=== PATIENT | male | born 1965 | race Caucasian/White ===

== ENCOUNTER 2017-06-01 07:26 | Emergency (ER) | payer BC ==
[2017-06-01 07:36] VITALS: BP 123/70
--- NOTE | 2017-06-01 08:03 | ED ---
Throat Pain/Nasal Congestion - HPI Summary HPI Summary: 52 yr old male with complaint of sinus pressure, congestion, post nasal drip, coughing and chest congestion. Onset of symptoms was 1.5 weeks ago. Associated with mostly sinus pressure. he states he has allergies to PCN. - History of Current Complaint Chief Complaint: UCRespiratory Time Seen by Provider: 06/01/17 07:36 - Allergies/Home Medications Allergies/Adverse Reactions: Allergies Allergy/AdvReac Type Severity Reaction Status Date / Time Penicillins Allergy Unknown Verified 06/01/17 07:36 Reaction Details PMH/Surg Hx/FS Hx/Imm Hx Endocrine/Hematology History: Reports: Hx Diabetes Cardiovascular History: Reports: Hx Hypertension Respiratory History: Reports: Hx Asthma - Surgical History Surgery Procedure, Year, and Place: appy 1978, right humerus bone cyst , fibromas on arms, legs, cardiac stents 2009 Infectious Disease History: No Infectious Disease History: Denies: Traveled Outside the [place] in Last 30 Days - Family History Known Family History: Positive: None Negative: Cardiac Disease, Hypertension - Social History Occupation: Employed Full-time Alcohol Use: Rare Substance Use Type: Reports: None Smoking Status (MU): Former Smoker Type: Cigarettes Amount Used/How Often: 1 PPD Length of Time of Smoking/Using Tobacco: On and Offfor 38 Years Review of Systems Constitutional: Negative Positive: Sore Throat, Nasal Discharge Positive: Cough All Other Systems Reviewed And Are Negative: Yes Physical Exam Triage Information Reviewed: Yes Vital Signs On Initial Exam: Initial Vitals Temp Pulse Resp BP Pulse Ox 98 F 79 18 123/70 97 06/01/17 07:32 06/01/17 07:32 06/01/17 07:32 06/01/17 07:32 06/01/17 07:32 Vital Signs Reviewed: Yes Appearance: Positive: Well-Appearing, Obese Skin: Positive: Warm, Skin Color Reflects Adequate Perfusion Head/Face: Positive: Normal Head/Face Inspection Eyes: Positive: EOMI ENT: Positive: Normal ENT inspection, Hearing grossly normal, Pharynx normal, Nasal congestion, TMs normal, Sinus tenderness - bilateral maxillary Respiratory/Lung Sounds: Positive: Clear to Auscultation, Breath Sounds Present Cardiovascular: Positive: RRR. Negative: Murmur Abdomen Description: Positive: Nontender Musculoskeletal: Positive: Strength/ROM Intact Neurological: Positive: Sensory/Motor Intact, Alert, Oriented to Person Place, Time, CN Intact II-III Psychiatric: Positive: Normal - Skip Coma Scale Best Eye Response: 4 - Spontaneous Best Motor Response: 6 - Obeys Commands Best Verbal Response: 5 - Oriented Diagnostics - Vital Signs Vital Signs Temp Pulse Resp BP Pulse Ox 06/01/17 07:32 98 F 79 18 123/70 97 - Laboratory Lab Statement: Any lab studies that have been ordered have been reviewed, and results considered in the medical decision making process. EENT Course/Dx - Course Course Of Treatment: 52 male with sinusitis, allergies to PCN. Zpack prescribed. - Diagnoses Provider Diagnoses: Sinusitis Discharge - Discharge Plan Condition: Good Disposition: HOME Prescriptions: Azithromycin TAB* [Zithromax TAB (Z-ADEN) 250 mg #6 tabs] 2 tab PO .TODAY, THEN 1 DAILY #1 aden Patient Education Materials: Sinusitis (ED) Referrals: Halina Corey MD [Primary Care Provider] - 3 Days
== END 2017-06-01 07:58 | disposition home or self-care (01) ==
LOC: UCCORT 07:26
DX: J32.9 Chronic sinusitis, unspecified (principal); Z88.0 Allergy status to penicillin; E11.9 Type 2 diabetes mellitus without complications; I10 Essential (primary) hypertension; J45.909 Unspecified asthma, uncomplicated; Z87.891 Personal history of nicotine dependence; E66.9 Obesity, unspecified
CPT/HCPCS: 99212; G0463

== ENCOUNTER 2018-05-12 21:22 | Emergency (ER) | payer BC ==
[2018-05-12 21:38] VITALS: BP 141/92
--- NOTE | 2018-05-12 21:39 | UC ---
General HPI - HPI Summary HPI Summary: 53 yo male presents with fatigue, body aches, and "not feeling right" over the past week. Not getting worse or better. He has taken aspirin for his symptoms with no change. He does not have any cold symptoms, but attributes the way he is feeling due to the "flu". He states he feels like this is the "precursor" to bronchitis that he gets about twice a year. Denies fever, headache, dizziness , sinus symptoms, sore throat, cough, SOB, chest pain, abdominal pain, n/v, dysuria, hematuria, blood in stool, or gum bleeding. He has an extensive cardiac history and tells me that he has had 5 cardiac stents. 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 - History of Current Complaint Stated Complaint: NAUSEA/ACHES Time Seen by Provider: 05/12/18 21:34 Hx Obtained From: Patient Onset Severity: Mild Current Severity: Mild Pain Intensity: 2 - Allergy/Home Medications Allergies/Adverse Reactions: Allergies Allergy/AdvReac Type Severity Reaction Status Date / Time Penicillins Allergy Unknown Verified 05/12/18 21:41 Reaction Details Home Medications: Home Medications Potassium Chloride [Klor-Con 10] 10 meq PO DAILY 05/12/18 [History Confirmed 08/25] Zaleplon [Sonata] 20 mg PO BEDTIME 05/12/18 [History Confirmed 05/12/18] glipiZIDE TAB* [Glucotrol TAB*] 5 mg PO DAILY 05/12/18 [History Confirmed ] PMH/Surg Hx/FS Hx/Imm Hx Endocrine History: Diabetes, Dyslipidemia Cardiovascular History: Cardiac Disease, Hypertension, Myocardial Infarction GI/ History: Gastroesophageal Reflux, Ulcer - Surgical History Surgical History: Yes Surgery Procedure, Year, and Place: appy 1978, right humerus bone cyst 1971-, fibromas on arms, legs, cardiac stents 2009 - Family History Known Family History: Positive: Cardiac Disease, Hypertension - Social History Occupation: Employed Full-time Lives: With Family Alcohol Use: Rare Substance Use Type: None Smoking Status (MU): Former Smoker Type: Cigarettes Amount Used/How Often: 1 PPD Length of Time of Smoking/Using Tobacco: On and Offfor 38 Years When Did the Patient Quit Smoking/Using Tobacco: ~2013 - Immunization History Most Recent Influenza Vaccination: no Review of Systems All Other Systems Reviewed And Are Negative: Yes Constitutional: Positive: Fatigue, Other - Body aches Skin: Positive: Negative Eyes: Positive: Negative ENT: Positive: Negative Respiratory: Positive: Negative Cardiovascular: Positive: Negative Gastrointestinal: Positive: Negative Genitourinary: Positive: Negative Motor: Positive: Negative Neurovascular: Positive: Negative Musculoskeletal: Positive: Negative Neurological: Positive: Negative Psychological: Positive: Negative Physical Exam - Summary Physical Exam Summary: GENERAL: NAD. Obese SKIN: No rashes, sores, or open wounds. HEENT: Head: AT/NC Eyes: PERRLA. EOM intact. Conjunctiva clear without inflammation or discharge. Ears: Hearing grossly normal. TMs intact, no bulging, erythema, or edema. Nose: Nasal mucosa pink and moist. NTTP maxillary and frontal sinus. Throat: Posterior oropharynx without exudates, erythema, or tonsillar enlargement. Uvula midline. NECK: Supple. Nontender. No lymphadenopathy. CHEST: CTAB. No r/r/w. No accessory muscle use. Breathing comfortably and in no distress. CV: RRR. Pulses intact. Brisk cap refill. ABDOMEN: Soft. NTTP. Bowel sounds present NEURO: Alert. PSYCH: Age appropriate behavior. Triage Information Reviewed: Yes Vital Signs: Vital Signs: Temp Pulse Resp BP Pulse Ox 97.6 F 90 18 141/92 97 05/12/18 21:36 05/12/18 21:36 05/12/18 21:36 05/12/18 21:36 05/12/18 21:36 Laboratory Tests 05/12/18 21:40 POC Glucose (mg/dL) 143 H Vital Signs Reviewed: Yes Course/Dx - Course Course Of Treatment: EKbpm. NSR. No STEMI. As read by Dr. Yepez. Prolonged NE. POC glucose: 143. Discussed with pt that I am unsure the cause of his fatigue and body aches, but could be related to viral "flu-like" illness. He is well appearing today and his exam is WNL. I will draw for CBC, CMP, TSH, and lyme panel and have him f/u with his PCP as soon as possible ( within 1 week) for recheck. Strongly advised him to go to the ED if he develops worsening symptoms, SOB, or chest pain. - Diagnoses Provider Diagnosis: Fatigue, Body aches Discharge - Sign-Out/Discharge Documenting (check all that apply): Patient Departure All imaging exams completed and their final reports reviewed: No Studies - Discharge Plan Condition: Stable Disposition: HOME Referrals: Halina Corey MD [Primary Care Provider] - 1 Day Additional Instructions: Your blood pressure was high at todays visit. 1) I am unsure the cause of your fatigue and body aches - this could be related to a viral illness. Please schedule a follow up appointment with your Primary Doctor this week for a recheck. 2) If you develop a fever, shortness of breath, chest pain, new or worsening symptoms - please go to the ED. - Billing Disposition and Condition Condition: STABLE Disposition: Home
[2018-05-13 10:45] LABS: Hematocrit 55 % (42-52); Hemoglobin 18.6 g/dl (14.0-18.0); Mean Corpuscular HGB Conc 34 g/dl (31-36); Mean Corpuscular Hemoglobin 31 pg (27-31); Mean Corpuscular Volume 91 fL (80-94); Mean Platelet Volume 9.2 fL (7.4-10.4); Platelet Count 236 10^3/ul (150-450); Red Cell Distribution Width 14 % (10.5-15); White Blood Count 9.5 10^3/ul (3.5-10.8)
[2018-05-13 11:00] LABS: EGFR Non-African American 93.6 (>60)
[2018-05-13 11:27] LABS: ABS Basophils 0.1 10^3/ul (0-0.2); ABS Eosinophils 0.1 10^3/ul (0-0.6); ABS Lymphocytes 2.2 10^3/ul (1.0-4.8); ABS Monocytes 1.1 10^3/ul (0-0.8); ABS Nucleated RBC 0 10^3/ul; Eosinophil % 1.5 %; Lymphocyte % 23.3 %; Nucleated Red Blood Cells % 0.4
--- NOTE | 2018-05-14 08:11 | UC ---
- Progress Note Progress Note: cbc/cmp/tsh reviewed slight increase calcium please advise pt to f/u with PCP heri 05/14/18 Course/Dx - Diagnoses Provider Diagnoses: Fatigue, Body aches Discharge - Sign-Out/Discharge Documenting (check all that apply): Post-Discharge Follow Up All imaging exams completed and their final reports reviewed: No Studies - Discharge Plan Condition: Stable Disposition: HOME Referrals: Madhav ACEVES,Halina [Primary Care Provider] - 1 Day Additional Instructions: Your blood pressure was high at todays visit. 1) I am unsure the cause of your fatigue and body aches - this could be related to a viral illness. Please schedule a follow up appointment with your Primary Doctor this week for a recheck. 2) If you develop a fever, shortness of breath, chest pain, new or worsening symptoms - please go to the ED. - Billing Disposition and Condition Condition: STABLE Disposition: Home
== END 2018-05-12 22:03 | disposition home or self-care (01) ==
LOC: UCCORT 21:22
DX: R53.83 Other fatigue (principal); R52 Pain, unspecified; Z88.0 Allergy status to penicillin; E11.9 Type 2 diabetes mellitus without complications; I10 Essential (primary) hypertension; Z87.891 Personal history of nicotine dependence
CPT/HCPCS: 36415; 80053; 84443; 85025; 86618; 93005; 99212; G0463

== ENCOUNTER 2018-09-01 20:50 | Emergency (ER) | payer BC ==
[2018-09-01 21:08] VITALS: BP 156/83
--- NOTE | 2018-09-01 21:20 | UC ---
Lower Extremity/Ankle HPI - HPI Summary HPI Summary: 53-year-old male who is an insulin-dependent diabetic. He stated his left second toenail came off this evening when he hits his toe. Because of his diabetes he has decreased sensation to his feet anyways. He states last evening when he took a shower his toe looked normal. Tonight it's more red, tender and warm to touch. - History of Current Complaint Chief Complaint: UCLowerExtremity Stated Complaint: LEFT 2ND TOENAIL CAME OFF Time Seen by Provider: 09/01/18 21:01 Hx Obtained From: Patient, Family/Solar Maintenance Technician Onset/Duration: Gradual Onset Severity Initially: Moderate Severity Currently: Moderate Pain Intensity: 2 Aggravating Factor(s): Nothing Alleviating Factor(s): Nothing Able to Bear Weight: Yes - Allergies/Home Medications Allergies/Adverse Reactions: Allergies Allergy/AdvReac Type Severity Reaction Status Date / Time Penicillins Allergy Unknown Verified 09/01/18 21:03 Reaction Details PMH/Surg Hx/FS Hx/Imm Hx Previously Healthy: No Endocrine History: Diabetes Cardiovascular History: Cardiac Disease, Hypertension Respiratory History: COPD, Asthma - Surgical History Surgical History: Yes Surgery Procedure, Year, and Place: appy 1978, right humerus bone cyst 1971-, fibromas on arms, legs, cardiac stents 2009 - Family History Known Family History: Positive: Cardiac Disease, Hypertension - Social History Alcohol Use: Daily Substance Use Type: None Smoking Status (MU): Former Smoker Type: Cigarettes Amount Used/How Often: 1 PPD Length of Time of Smoking/Using Tobacco: On and Offfor 38 Years When Did the Patient Quit Smoking/Using Tobacco: ~2013 - Immunization History Most Recent Influenza Vaccination: no Review of Systems All Other Systems Reviewed And Are Negative: Yes Constitutional: Positive: Negative Neurovascular: Positive: Decreased Sensation - Patient states he normally has decreased sensation in his feet and toes due to his diabetes. Musculoskeletal: Positive: Edema - Occasionally has some pedal edema. Neurological: Positive: Numbness - The numbness and tingling in his toes is no worse tonight than usual. Psychological: Positive: Negative Is Patient Immunocompromised?: No Physical Exam Triage Information Reviewed: Yes Appearance: Well-Appearing, No Pain Distress, Well-Nourished Vital Signs: Initial Vital Signs Temp 98.5 F 09/01/18 21:04 Pulse 100 09/01/18 21:04 Resp 18 03/25/19 21:04 BP 156/83 09/01/18 21:04 Pulse Ox 95 09/01/18 21:04 Vital Signs Reviewed: Yes Musculoskeletal: Positive: Strength Intact, ROM Intact, Edema @ - The left second toe is swollen, erythematous, the nail is missing and it has yellow exudate present. No active drainage. Good peripheral pulses. Neurological: Positive: Alert, Muscle Tone Normal, Other: - Decreased sensation to toes which is normal for the patient. Psychological Exam: Normal Skin: Positive: Other - Patient also has some erythema to the dorsum of his left foot just proximal to the affected toe. Lower Extremity Course/Dx - Course Course Of Treatment: After discussing the case with Dr. Yepez, it was felt this patient needs a higher level of care and he should go to the local emergency room for further care. At this point I believe this is a cellulitis that within 24 hours may worsen. The patient is agreeable to going to the emergency room after that recommendation was made to him. - Differential Dx/Diagnosis Differential Diagnosis/HQI/PQRI: Cellulitis Provider Diagnosis: Cellulitis, toe Discharge - Sign-Out/Discharge Documenting (check all that apply): Patient Departure All imaging exams completed and their final reports reviewed: No Studies - Discharge Plan Condition: Fair Disposition: HOME-RECOMMEND TO ED Patient Education Materials: Cellulitis (DC) Referrals: Halina Corey MD [Primary Care Provider] - Additional Instructions: It is highly recommended that you go to the emergency room for further treatment from here. - Billing Disposition and Condition Condition: FAIR Disposition: Home-Recommend to ED
== END 2018-09-01 21:25 | disposition home health service (06) ==
LOC: UCCORT 20:50
DX: L03.032 Cellulitis of left toe (principal); E11.9 Type 2 diabetes mellitus without complications; I10 Essential (primary) hypertension; Z79.4 Long term (current) use of insulin; Z88.0 Allergy status to penicillin; Z87.891 Personal history of nicotine dependence
CPT/HCPCS: 99212; G0463

== ENCOUNTER 2019-03-21 13:03 | Emergency (ER) | payer BC ==
--- OUTSIDE RECORDS SUMMARY | 2019-03-21 13:11 | XMS REPORT | Continuity of Care Document ---
:1965 External Reference #:[id number] Author Name Flavio López MD Address [address] [place] [id number] Care Team Providers Name Role Phone Halina Corey MD - Family Medicine Care Team Information Assistant Prosecuting Attorney [phone] Problems Active Problems Provider Date Coronary arteriosclerosis Rivas Lamar M.D., Onset: 03/05/[address] [facility] Hyperlipidemia Rivas Lamar M.D., Onset: 03/05/[address] [facility] Pure hypercholesterolemia Onset: 03/28/2016 Morbid obesity Rivas Lamar M.D., Onset: 03/05/[address] [facility] Neurological disorder with type 2 Halina Corey MD Onset: 11/25/2014 diabetes mellitus [place] Elvi Ninasendy, Onset: 03/24/2015 MSN, INDEX CLERK Testicular hypofunction Halina Corey MD Onset: 03/31/2015 Hypertensive heart disease without heart Halina Corey MD Onset: 03/31/2015 failure Atherosclerotic heart disease of [place] Halina Corey MD Onset: 04/13/2015 coronary artery without angina pectoris Type II diabetes mellitus uncontrolled Rivas Lamar M.D., Onset: 12/[address] [facility] Type 2 diabetes mellitus Halina Corey MD Onset: 03/28/2016 Other enthesopathy of unspecified foot Halina Corey MD Onset: 03/28/2016 and ankle Duodenitis Halina Corey MD Onset: 09/27/2016 Gastro-esophageal reflux disease with Halina Corey MD Onset: 09/27/2016 esophagitis Atherosclerotic heart disease of [place] Halina Corey MD Onset: 09/27/2016 coronary artery with unstable angina pectoris Neurofibromatosis type 1 Halina Corey MD Onset: 11/08/2016 Chronic obstructive pulmonary disease Halina Corey MD Onset: 11/08/2016 with (acute) exacerbation Mild intermittent asthma Halina Corey MD Onset: 01/31/2017 Insomnia Halina Corey MD Onset: 01/31/2017 Infectious colitis, enteritis and Halina Corey MD Onset: 04/19/2017 gastroenteritis Cramp in foot Halina Corey MD Onset: 04/26/2017 Verruca vulgaris Halina Corey MD Onset: 05/29/2018 Candidiasis of skin and nails Halina Corey MD Onset: 05/29/2018 Cellulitis of left toe Rivas Lamar M.D., Onset: 09/12/[address] [facility] Bardales's palsy Flavio López MD Onset: 01/22/2019 Type 2 diabetes mellitus with diabetic Flavio López MD Onset: 01/22/2019 polyneuropathy Bradycardia, unspecified Flavio López MD Onset: 01/22/2019 Essential hypertension Flavio López MD Onset: 02/26/2019 Social History Type Date Description Comments Sex Unknown Tobacco Use Start: Unknown End: Former Cigarette Smoker x 18 yrs quit at Unknown 1 Pack Daily age 47 Smoking Status Reviewed: 02/26/19 Former Cigarette Smoker x 18 yrs quit at 1 Pack Daily age 47 ETOH Use 09/2018 Denies alcohol use not using at thisa time Tobacco Use Start: Unknown End: Patient is a former 1PPD X 16+ YEARS Unknown smoker QUIT 2012 Recreational Drug Use Denies Drug Use Exercise Type/Frequency Does not exercise Allergies, Adverse Reactions, Alerts Active Allergies Reaction Severity Comments Date NKDA 09/12/2018 Seasonal 09/25/2018 Inactive Allergies Environmental 11/25/2014 Medications Active Medications SIG Qnty Indications Ordering Provider Date Glipizide 1 tabs by mouth 90tabs Flavio López MD 09/11/2018 10mg once a day with Tablets breakfast Nystatin apply to affected 60gm B37.2 Halina Corey, 05/29/2018 areas 2x/day after 701363Mtko/GM Powder washing and drying well Jobst Active wear to work each 2pr I25.10 Halina Corey, 04/18/2018 15-20MMHG/Knee day High/Closed Toe/X-Large Misc E11.21 Rosuvastatin Calcium Take 1 Tablet Before 90tabs Halina Corey, 2017 10mg Bedtime (Maximum MD Tablets Daily Dose 1) Gabapentin take one capsule by 270caps Halina Corey, 01/02/2018 300mg Capsules mouth three times a MD day Triamcinolone apply to affected 10gm Halina Corey, 01/02/2018 Acetonide Dental Paste oral lesions 3x/day MD if needed, 0.1% Paste especially before bed, Losartan Take One Tablet By 90tabs Rivas Lamar 12/27/2017 Potassium/Hydrochlorot Mouth Every Day Pako Jones, [facility] hiazide 50-12.5mg Tablets Pantoprazole Sodium Take One Tablet By 90tabs K29.60 Halina Corey, 07/04 20mg Mouth Every Day MD Yuriy CONTRERAS Isosorbide Mononitrate Take 1 Tablet Daily 90tabs Halina Corey, 2016 ER (Maximum Daily Dose MD 60mg Tablets ER 24HR Of 1 Tablet) MDD 1 Klor-Con 10 1 tab by mouth every 90tabs R25.2 Halina Corey, 04/26/2017 10Meq Tablets morning MD ER Clopidogrel Bisulfate Take 1 Tablet Daily 90tabs Halina Corey, 2016 (Maximum Daily Dose MD 75mg Tablets Of 1 Tablet) MDD 1 Proair HFA use 2 inhalations 25.5gm Halina Corey, 06/06/2016 108(90Base) every 4 hours as MD mcg/Act Aerosol needed Freestyle Lite Blood check fasting 1units Halina Corey, 03/28/2016 Glucose Monitoring glucose 2x/day Dx MD System E11.40 Device Nitrostat 1 tab sl every 5 min 25tabs I25.10 Halina Corey, 11/25/2014 0.4mg Tablets x3 chest pain MD Nichols Freestyle Test Strips test glucose 2x/day 300units E11.65 Halina Corey, 11/19/2014 at alternating times MD Strips and as needed. Aspirin 81 1 po qd I25.10 [place] 11/11/2013 81mg Tablets Lana, MSN, DR INDEX CLERK Furosemide Take 1 Tablet Twice 180tabs R60.9 Halina Corey, 02/06/2011 20mg Tablets A Day (Max Daily MD Dose: 2) MDD 2 Carvedilol Take 1 Tablet Twice 180tabs I10 Halina Corey, 09/14/2010 25mg Tablets A Day (Maximum Daily MD Dose Is 2 Tablets) MDD 2 Fish Oil po bid 90caps Unknown 1000mg Capsules Saw [place] po 3x a day Unknown 500mg Capsules Multi-Vitamin 1 po qd Unknown Tablets Vitamin C 1 by mouth every day 100tabs Unknown 1000mg Tablets [facility] D3 Once Daily Unknown 2000Unit Capsules Zaleplon take 2 capsules by 60caps G47.00 Halina Corey, 10mg Capsules mouth at bedtime as MD needed for insomnia reference #: [id number] Fluticasone Propionate inhale one spray in 48units Halina Corey, each nostril every MD 50mcg/Act Suspension day OTC Antacid A/D prn Unknown Montelukast Sodium Take One Tablet By 90tabs Halina Corey, 10mg Mouth Every Morning MD Tablets Maximum Daily Dose = 1 Flovent Diskus Use 1 Inhalation 180units Halina Corey, Twice A Day as 250mcg/Blist Aerosol Needed ( Maximum Daily Dose Of 2 Inhalations ) Invokana Take One Tablet By 90tabs Halina Corey, 300mg Tablets Mouth Every Day Janumet Take One Tablet By 180tabs Halina Corey, 50-1000mg Tablets Mouth Twice A Day Valacyclovir HCL Take One Tablet By Unknown 1gm Mouth Twice A Day Tablets Medications Administered in Office Medication SIG Qnty Indications Ordering Provider Date Injection Testosterone Halina Corey MD 02/10/2015 Enanthate To 200 MG Injection Injection Testosterone Mariposa Haque MD 01/20/2015 Enanthate To 200 MG Injection Injection Testosterone Halina Corey MD 12/30/2014 Enanthate To 200 MG Injection Injection Testosterone Halina Corey MD 12/09/2014 Enanthate To 200 MG Injection Immunizations CPT Code Status Date Vaccine Lot # [id number] Given 02/26/2019 Influenza Virus Vaccine, Quadrivalent, 36 Mos+, [id number] .[id number] 00399 Given 05/29/2018 Influenza Virus Vaccine, Quadrivalent, 36 Mos+, [id number] .5ML 63084 Given 03/28/2016 Influenza Virus Vaccine Split Virus Use For [id number] Individual 3Yr Older Q2038 Given 03/31/2015 Influenza Vaccine (Fluzone) Age 3 And Older [id number] 53098 Given 03/31/2015 Pneumococcal Conjugate Vaccine 13 Valent For [id number] Intramuscular Use Q2038 Given 05/15/2014 Influenza Vaccine (Fluzone) Age 3 And Older Q2038 Given 03/19/2013 Influenza Vaccine (Fluzone) Age 3 And Older Q2038 Given 06/16/2012 Influenza Vaccine (Fluzone) Age 3 And Older 65680 Given 05/08/2012 Pneumovax Injection Q2038 Given 03/08/2011 Influenza Vaccine (Fluzone) Age 3 And Older 92373 Given 03/08/2011 flu vaccination 58116 Given 03/31/2010 flu vaccination 75072 Given 10/07/2009 Tdap injection 28469 Given 08/08/2007 Pneumovax Injection 75657 Given 08/08/2007 Tdap injection Vital Signs Date Vital Result Comment 02/26/2019 8:26am BP Systolic Sitting Left Arm 142 mmHg BP Diastolic Sitting Left Arm 82 mmHg Body Temperature 98.5 F Heart Rate 44 /min Respiratory Rate 18 /min Height 72 inches 6'0" Weight 342.00 lb BMI (Body Mass Index) 46.4 kg/m2 BSA (Body Surface Area) 2.68 m2 [place] body weight in kilograms 81 kg 01/22/2019 10:22am BP Systolic 125 mmHg BP Diastolic 56 mmHg Body Temperature 97.8 F Heart Rate 48 /min Respiratory Rate 18 /min Height 72 inches Weight 338.50 lb BMI (Body Mass Index) 45.9 kg/m2 BSA (Body Surface Area) 2.66 m2 [place] body weight in kilograms 81 kg O2 % BldC Oximetry 95 % Ra Results Test Date Facility Test Result H/L Range Note Glycohemoglobin A1c [facility] [address] Glycohemoglobin 7.9 % High 4.2-6.3 1, 2 9 4077 [facility] (A1c) [place] [address] [phone] eAG 180 mg/dL LDL Cholesterol Profile 02/25/[address] [facility] [address] Cholesterol 142 mg/dL <[address] [place], [place] [id number] [phone] Triglycerides 330 mg/dL High <150 4 HDL Cholesterol 43 mg/dL >40 5 LDL-Cholesterol 33 mg/dL < 100 6 Laboratory test 01/15/2019 [facility] Troponin-I < 0.015 7, [address] ng/mL [place], [place] [id number] [phone] Basic Metabolic 01/15/2019 [facility] Glucose 158 mg/dL High 74-[address] [place] [address] [phone] BUN 18 mg/dL Normal 7-18 Creatinine 0.9 mg/dL Normal 0.6-1.3 Glom Filtration Rate, Estimate >60 mL/min >60 If >60 mL/min >60 9 BUN/Creat 20.0 ratio Sodium 137 mmol/L Normal 136-145 Potassium 3.7 mmol/L Normal 3.5-5.1 Chloride 104 mmol/L Normal 98-107 Carbon Dioxide 23 mmol/L Normal 21-32 Anion Gap 10 mEq/L Normal 8-16 Calcium 9.2 mg/dL Normal 8.5-10.1 CBC W/Automated 01/15/2019 [facility] White 8.6 K/uL Normal 3.4-10.5 [address] [place] [address] Count [phone] Red Blood Count 5.66 M/uL Normal 4.20-5.80 Hemoglobin 17.9 gm/dL High 12.8-17.0 Hematocrit 51.5 % High 38.0-48.0 Mean Cell Volume 91.0 fl Normal 80.0-96.0 Mean Corpuscular HGB 31.6 pg Normal 27.0-33.0 Mean Corpuscular HGB Conc 34.8 g/dL Normal 31.7-36.0 Platelet Count 222 K/uL Normal 155-360 Red Cell Distri Width SD 44.7 fl Normal 36-51 Red Cell Distri Width %CV 13.3 % Normal 11.6-15.8 Mean Platelet Volume 10.7 fl High 6.6-10.6 Neut% 57.6 % Normal 33.0-73.0 Lymph % 26.6 % Normal 20.0-42.0 [place] % 12.7 % High 0.0-10.0 Eo% 1.4 % Normal 0.0-6.6 Bas% 0.8 % Normal 0.0-1.1 Immature Grans 0.9 % Normal 0.0-5.0 NRBC % 0.0 /100WBC < 10/ 100 WBC Neut# 4.93 K/uL Normal 1.8-7.0 Lymph # 2.28 K/uL Normal 1.0-4.0 [place] # 1.09 K/uL High 0.0-0.8 Eos # 0.12 K/uL Normal 0.0-0.5 Baso # 0.07 K/uL Normal 0.0-0.1 Immature Grans Absolute 0.08 K/uL NRBC # 0.00 K/uL Protime 01/15/2019 [facility] Protime 13.2 seconds Normal 12.0-14.[address] [place] [address] [phone] Inr 1.0 Normal 0.9-1.1 11 Laboratory test 01/15/2019 [facility] Act 34.1 Normal 23.4-35.0 [address] [place] [address] Thrombo [phone] Time Comprehensive 01/15/2019 [facility] Glucose 152 mg/dL High 74-106 Metabolic Panel [address] [place] [address] [phone] BUN 22 mg/dL High 7-18 Creatinine 1.2 mg/dL Normal 0.6-1.3 Glom Filtration Rate, Estimate >60 mL/min >60 If >60 mL/min >60 13 BUN/Creat 18.3 ratio Sodium 138 mmol/L Normal 136-145 Potassium 4.2 mmol/L Normal 3.5-5.1 Chloride 102 mmol/L Normal 98-107 Carbon Dioxide 26 mmol/L Normal 21-32 Anion Gap 10 mEq/L Normal 8-16 Calcium 9.0 mg/dL Normal 8.5-10.1 Total Protein 7.7 g/dL Normal 6.4-8.2 Albumin 3.8 g/dL Normal 3.4-5.0 Globulin 3.9 g/dL Normal 1.9-4.3 Alb/Glob 1.0 ratio Bilirubin,Total 0.4 mg/dL Normal 0.2-1.0 Sgot/Ast 28 U/L Normal 15-37 SGPT/Alt 55 U/L Normal 12-78 Alkaline Phosphatase 93 U/L Normal 45-117 Laboratory test finding 01/15/2019 [facility] CK 96 U/L Normal 39-[address] [place] [address] [phone] Troponin-I < 0.015 ng/mL 15 Laboratory test 01/15/2019 [facility] Troponin-I < 0.015 16, [address] ng/[place] [address] [phone] CBC W/Automated 01/15/2019 [facility] White Blood 7.1 K/uL Normal 3.4- Diff [address] Count 10.5 [place] [address] [phone] Red Blood Count 5.55 M/uL Normal 4.20-5.80 Hemoglobin 16.9 gm/dL Normal 12.8-17.0 Hematocrit 51.2 % High 38.0-48.0 Mean Cell Volume 92.3 fl Normal 80.0-96.0 Mean Corpuscular HGB 30.5 pg Normal 27.0-33.0 Mean Corpuscular HGB Conc 33.0 g/dL Normal 31.7-36.0 Platelet Count 180 K/uL Normal 155-360 Red Cell Distri Width SD 44.5 fl Normal 36-51 Red Cell Distri Width %CV 13.2 % Normal 11.6-15.8 Mean Platelet Volume 11.2 fl High 6.6-10.6 Neut% 58.2 % Normal 33.0-73.0 Lymph % 24.8 % Normal 20.0-42.0 [place] % 13.2 % High 0.0-10.0 Eo% 2.4 % Normal 0.0-6.6 Bas% 0.7 % Normal 0.0-1.1 Immature Grans 0.7 % Normal 0.0-5.0 NRBC % 0.0 /100WBC < 10/ 100 WBC Neut# 4.12 K/uL Normal 1.8-7.0 Lymph # 1.75 K/uL Normal 1.0-4.0 [place] # 0.93 K/uL High 0.0-0.8 Eos # 0.17 K/uL Normal 0.0-0.5 Baso # 0.05 K/uL Normal 0.0-0.1 Immature Grans Absolute 0.05 K/uL NRBC # 0.00 K/uL Laboratory test 01/14/2019 [facility] Troponin-I < 0.015 [address] ng/[place] [address] [phone] Glycohemoglobin 11/28/2018 [facility] Glycohemoglobin 7.5 % High 4.2 19, A1c [address] (A1c) -6. 20 [place] [address] 3 [phone] eAG 169 mg/dL Urine Dipstick 11/28/2018 [facility] Inhouse Ua Color yellow Yellow Ua Clarity clear Clear Ua Leuko Neg Negative Ua Nitrite Neg Negative Ua Urobilinogen Neg Low 0.2 - 1.0 E.U./dL Ua Protein Neg Negative Ua PH 6.0 Low 6.5-7.5 Ua Blood Neg Negative Ua Specific Fabius 1.020 1.010-1.030 Ua Ketones Neg Negative Ua Bilirubin Neg Negative Ua Glucose 3+ High Negative LDL Cholesterol 09/12/2018 [facility] [address] Cholesterol 140 mg/dL <200 21, 22 Profile [address] [place] [address] [phone] Triglycerides 128 mg/dL <150 23 HDL Cholesterol 39 mg/dL Low >40 24 LDL-Cholesterol 75 mg/dL < 100 25 Reflex add FT3? Y Reflex add FT4? Y TSH Reflex 09/12/2018 [facility] [address] Thyroid Stim 2.46 uIU/mL Normal 0.30-4.20 FT4 And/Or [address] [facility] Hormone FT3 [place] [address] [phone] Reflex add FT3? Y Reflex add FT4? Y Magnesium 09/12/2018 [facility] [address] Magnesium 2.1 mg/dL Normal 1.8-2.4 [address] [place], [place] [address] [phone] Reflex add FT3? Y Reflex add FT4? Y Basic Metabolic Panel 09/06/2018 [facility] Glucose 207 mg/dL High 74-106 26 [address] [place] [address] [phone] BUN 10 mg/dL Normal 7-18 Creatinine 0.9 mg/dL Normal 0.6-1.3 Glom Filtration Rate, Estimate >60 mL/min >60 If >60 mL/min >60 27 BUN/Creat 11.1 ratio Sodium 136 mmol/L Normal 136-145 Potassium 3.6 mmol/L Normal 3.5-5.1 Chloride 104 mmol/L Normal 98-107 Carbon Dioxide 27 mmol/L Normal 21-32 Anion Gap 5 mEq/L Low 8-16 Calcium 9.5 mg/dL Normal 8.5-10.1 Aot Request 09/05/2018 [facility] Aot Request Test(s) added 28 [address] [place] [address] [phone] Tests to be added: crp Basic Metabolic Panel 09/05/2018 [facility] Glucose 184 mg/dL High 74-106 [address] [place] [address] [phone] BUN 10 mg/dL Normal 7-18 Creatinine 0.9 mg/dL Normal 0.6-1.3 Glom Filtration Rate, Estimate >60 mL/min >60 If >60 mL/min >60 29 BUN/Creat 11.1 ratio Sodium 136 mmol/L Normal 136-145 Potassium 3.7 mmol/L Normal 3.5-5.1 Chloride 106 mmol/L Normal 98-107 Carbon Dioxide 24 mmol/L Normal 21-32 Anion Gap 6 mEq/L Low 8-16 Calcium 9.3 mg/dL Normal 8.5-10.1 CBC 09/05/2018 [facility] White Blood Count 5.2 K/uL Normal 3.4-10.5 [address] [facility] [place] [address] [phone] Red Blood Count 5.27 M/uL Normal 4.20-5.80 Hemoglobin 16.2 gm/dL Normal 12.8-17.0 Hematocrit 49.1 % High 38.0-48.0 Mean Cell Volume 93.2 fl Normal 80.0-96.0 Mean Corpuscular HGB 30.7 pg Normal 27.0-33.0 Mean Corpuscular HGB Conc 33.0 g/dL Normal 31.7-36.0 Platelet Count 181 K/uL Normal 155-360 Red Cell Distri Width SD 45.4 fl Normal 36-51 Red Cell Distri Width %CV 13.5 % Normal 11.6-15.8 Mean Platelet Volume 10.7 fl High 6.6-10.6 NRBC % 0.0 /100WBC < 10/ 100 WBC CBC W/Automated Diff 09/05/2018 [facility] Neut% 49.9 % Normal 33.0-73.0 [address] [place] [address] [phone] Lymph % 29.7 % Normal 20.0-42.0 [place] % 15.5 % High 0.0-10.0 Eo% 2.7 % Normal 0.0-6.6 Bas% 1.2 % High 0.0-1.1 Immature Grans 1.0 % Normal 0.0-5.0 Neut# 2.58 K/uL Normal 1.8-7.0 Lymph # 1.53 K/uL Normal 1.0-4.0 [place] # 0.80 K/uL Normal 0.0-0.8 Eos # 0.14 K/uL Normal 0.0-0.5 Baso # 0.06 K/uL Normal 0.0-0.1 Immature Grans Absolute 0.05 K/uL NRBC # 0.00 K/uL White Blood Count 5.2 K/uL Normal 3.4-10.5 Red Blood Count 5.27 M/uL Normal 4.20-5.80 Hemoglobin 16.2 gm/dL Normal 12.8-17.0 Hematocrit 49.1 % High 38.0-48.0 Mean Cell Volume 93.2 fl Normal 80.0-96.0 Mean Corpuscular HGB 30.7 pg Normal 27.0-33.0 Mean Corpuscular HGB Conc 33.0 g/dL Normal 31.7-36.0 Platelet Count 181 K/uL Normal 155-360 Red Cell Distri Width SD 45.4 fl Normal 36-51 Red Cell Distri Width %CV 13.5 % Normal 11.6-15.8 Mean Platelet Volume 10.7 fl High 6.6-10.6 NRBC % 0.0 /100WBC < 10/ 100 WBC Laboratory test 09/05/2018 [facility] C-Reactive < 3.0 <3.[address] Protein,Quant mg/[place] [address] [phone] Basic Metabolic 09/04/2018 [facility] Glucose 233 High 74-[address] mg/[place] [address] [phone] BUN 11 mg/dL Normal 7-18 Creatinine 1.0 mg/dL Normal 0.6-1.3 Glom Filtration Rate, Estimate >60 mL/min >60 If >60 mL/min >60 30 BUN/Creat 11.0 ratio Sodium 137 mmol/L Normal 136-145 Potassium 3.7 mmol/L Normal 3.5-5.1 Chloride 105 mmol/L Normal 98-107 Carbon Dioxide 25 mmol/L Normal 21-32 Anion Gap 7 mEq/L Low 8-16 Calcium 9.5 mg/dL Normal 8.5-10.1 Laboratory 09/04/2018 [facility] Vancomycin,Trough 17.7 Normal 15.0-20.0 31 test finding [address] ug/[place] [address] [phone] CBC 09/04/2018 [facility] White Blood Count 5.1 Normal 3.4-10.[address] K/[place] [address] [phone] Red Blood Count 5.22 M/uL Normal 4.20-5.80 Hemoglobin 16.2 gm/dL Normal 12.8-17.0 Hematocrit 48.2 % High 38.0-48.0 Mean Cell Volume 92.3 fl Normal 80.0-96.0 Mean Corpuscular HGB 31.0 pg Normal 27.0-33.0 Mean Corpuscular HGB Conc 33.6 g/dL Normal 31.7-36.0 Platelet Count 183 K/uL Normal 155-360 Red Cell Distri Width SD 45.7 fl Normal 36-51 Red Cell Distri Width %CV 13.5 % Normal 11.6-15.8 Mean Platelet Volume 10.4 fL Normal 6.6-10.6 NRBC % 0 Basic Metabolic Panel 09/03/2018 [facility] Glucose 157 mg/dL High 74-[address] [place] [address] [phone] BUN 11 mg/dL Normal 7-18 Creatinine 0.8 mg/dL Normal 0.6-1.3 Glom Filtration Rate, Estimate >60 mL/min >60 If >60 mL/min >60 32 BUN/Creat 13.7 ratio Sodium 138 mmol/L Normal 136-145 Potassium 3.8 mmol/L Normal 3.5-5.1 Chloride 104 mmol/L Normal 98-107 Carbon Dioxide 27 mmol/L Normal 21-32 Anion Gap 7 mEq/L Low 8-16 Calcium 9.1 mg/dL Normal 8.5-10.1 Laboratory 09/03/2018 [facility] Vancomycin,Trough 13.6 Low 15.0-20.0 33 test finding [address] ug/mL [place], [place] [id number] [phone] CBC 09/03/2018 [facility] White Blood Count 5.4 Normal 3.4-10.[address] K/uL [place], [place] [id number] [phone] Red Blood Count 5.25 M/uL Normal 4.20-5.80 Hemoglobin 16.1 gm/dL Normal 12.8-17.0 Hematocrit 48.8 % High 38.0-48.0 Mean Cell Volume 93.0 fl Normal 80.0-96.0 Mean Corpuscular HGB 30.7 pg Normal 27.0-33.0 Mean Corpuscular HGB Conc 33.0 g/dL Normal 31.7-36.0 Platelet Count 167 K/uL Normal 155-360 Red Cell Distri Width %CV 13.9 % Normal 11.6-15.8 Mean Platelet Volume 10.8 fL High 6.6-10.6 CBC W/Automated 09/02/2018 [facility] White 6.7 K/uL Normal 3.4-10.5 [address] [place] [address] Count [phone] Red Blood Count 5.09 M/uL Normal 4.20-5.80 Hemoglobin 15.9 gm/dL Normal 12.8-17.0 Hematocrit 47.4 % Normal 38.0-48.0 Mean Cell Volume 93.1 fl Normal 80.0-96.0 Mean Corpuscular HGB 31.2 pg Normal 27.0-33.0 Mean Corpuscular HGB Conc 33.5 g/dL Normal 31.7-36.0 Platelet Count 172 K/uL Normal 155-360 Red Cell Distri Width SD 48.0 fl Normal 36-51 Red Cell Distri Width %CV 14.4 % Normal 11.6-15.8 Mean Platelet Volume 10.4 fL Normal 6.6-10.6 Neut% 52.8 % Normal 33.0-73.0 Lymph % 28.4 % Normal 20.0-42.0 [place] % 15.4 % High 0.0-10.0 Eo% 2.5 % Normal 0.0-6.6 Bas% 0.9 % Normal 0.0-1.1 Neut# 3.53 K/uL Normal 1.8-7.0 Lymph # 1.90 K/uL Normal 1.0-4.0 [place] # 1.03 K/uL High 0.0-0.8 Eos # 0.17 K/uL Normal 0.0-0.5 Baso # 0.06 K/uL Normal 0.0-0.1 Glycohemoglobin 09/02/2018 [facility] Glycohemoglobin 7.7 % High 4.2-6.[address] (A1c) [place], [place] [id number] [phone] eAG 174 mg/dL Basic Metabolic Panel 09/02/2018 [facility] Glucose 137 mg/dL High 74-[address] [place], [place] [address] [phone] BUN 21 mg/dL High 7-18 Creatinine 0.9 mg/dL Normal 0.6-1.3 Glom Filtration Rate, Estimate >60 mL/min >60 If >60 mL/min >60 36 BUN/Creat 23.3 ratio Sodium 137 mmol/L Normal 136-145 Potassium 3.7 mmol/L Normal 3.5-5.1 Chloride 104 mmol/L Normal 98-107 Carbon Dioxide 24 mmol/L Normal 21-32 Anion Gap 9 mEq/L Normal 8-16 Calcium 9.1 mg/dL Normal 8.5-10.1 Laboratory 09/02/2018 [facility] Lactic 2.1 Critical 0.4-1.9 test finding [address] Acid mmol/[place] [address] [phone] Blood Culture 09/01/2018 [facility] Blood NO 37, [address] Culture GROWTH: 38 [place] [address] Aerobic FINAL [phone] <SEE NOTE> Blood Culture Anaerobic NO GROWTH: FINAL <SEE NOTE> 39 Lactic Acid 09/01/2018 [facility] Lactic Acid 3.3 mmol/L Critical 0.4-1.[address] [place] [address] [phone] Lab Reflex >2.0 for Sepsis? Y Comprehensive Metabolic 09/01/2018 [facility] Glucose 197 mg/dL High 74-[address] [place] [address] [phone] BUN 20 mg/dL High 7-18 Creatinine 1.2 mg/dL Normal 0.6-1.3 Glom Filtration Rate, Estimate >60 mL/min >60 If >60 mL/min >60 40 BUN/Creat 16.6 ratio Sodium 136 mmol/L Normal 136-145 Potassium 3.9 mmol/L Normal 3.5-5.1 Chloride 103 mmol/L Normal 98-107 Carbon Dioxide 24 mmol/L Normal 21-32 Anion Gap 9 mEq/L Normal 8-16 Calcium 9.7 mg/dL Normal 8.5-10.1 Total Protein 7.5 g/dL Normal 6.4-8.2 Albumin 3.9 g/dL Normal 3.4-5.0 Globulin 3.6 g/dL Normal 1.9-4.3 Alb/Glob 1.1 ratio Bilirubin,Total 0.5 mg/dL Normal 0.2-1.0 Sgot/Ast 44 U/L High 15-37 SGPT/Alt 82 U/L High 12-78 Alkaline Phosphatase 102 U/L Normal 45-117 Differential-WBC Confirm 09/01/2018 [facility] Total Cells 100 #CELLS [address] [place] [address] [phone] Band% 1 % Normal 0-8 Neutrophils% 66 % Normal 33-73 Lymph% 14 % Low 20-42 Atypical Lymph% 2 % Normal 0-7 Monocyte% 13 % High 0-10 Eosinophil% 2 % Normal 0-5 Basophil% 2 % Normal 0-2 Platelet Estimate NORMAL Anisocytosis 1+ Differential Comment FEW LRG PLTS Laboratory test 09/01/2018 [facility] Slide Review DIFF ORDERED finding [address] [place] [id number] [phone] CBC W/Automated 09/01/2018 [facility] White Blood 9.8 K/uL Normal 3.4-[address] Count 0.5 [place] Chan [id number] [phone] Red Blood Count 5.29 M/uL Normal 4.20-5.80 Hemoglobin 16.5 gm/dL Normal 12.8-17.0 Hematocrit 49.1 % High 38.0-48.0 Mean Cell Volume 92.8 fl Normal 80.0-96.0 Mean Corpuscular HGB 31.2 pg Normal 27.0-33.0 Mean Corpuscular HGB Conc 33.6 g/dL Normal 31.7-36.0 Platelet Count 214 K/uL Normal 155-360 Red Cell Distri Width SD 47.6 fl Normal 36-51 Red Cell Distri Width %CV 14.4 % Normal 11.6-15.8 Mean Platelet Volume 10.7 fL High 6.6-10.6 Neut% 62.4 % Normal 33.0-73.0 Lymph % 21.5 % Normal 20.0-42.0 [place] % 13.6 % High 0.0-10.0 Eo% 1.7 % Normal 0.0-6.6 Bas% 0.8 % Normal 0.0-1.1 Neut# 6.13 K/uL Normal 1.8-7.0 Lymph # 2.12 K/uL Normal 1.0-4.0 [place] # 1.34 K/uL High 0.0-0.8 Eos # 0.17 K/uL Normal 0.0-0.5 Baso # 0.08 K/uL Normal 0.0-0.1 Blood Culture 09/01/2018 [facility] Blood Culture NO GROWTH: 41, [address] Aerobic FINAL <SEE JANETH Chan [address] NOTE> [phone] Blood Culture Anaerobic NO GROWTH: FINAL <SEE NOTE> 43 1 E11.42 Z79.899 2 Elevated levels of HbA1c suggest the need for more aggressive treatment of glycemia. The [employer] recommends that a primary goal of therapy should be a HbA1c of <7% and that physicians should re-evaluate the treatment regimen in patients with HbA1c values consistently >8%. 3 Reference Guidelines*: Desirable: ........... < 200 mg/dL Borderline High: ..... 200-239 mg/dL High: ................ >= 240 mg/dL * The National Cholesterol Education Program (NCEP) 4 Reference Guidelines*: Normal: ............. < 150 mg/dL Borderline High: .... 150-199 mg/dL High: ............... 200-499 mg/dL Very High: .......... > 500 mg/dL * Source: National Cholesterol Education Program (NCEP) 5 Reference Guidelines*: Low HDL: ..... < 40 mg/dL Normal: ..... 40-60 mg/dL Desirable: ... > 60 mg/dL *The National Cholesterol Education Program(NCEP) 6 Reference Guidelines*: Optimal:........... <100 mg/dL Near Optimal....... 100-129 mg/dL Borderline High.... 130-159 mg/dL High............... 160-189 mg/dL Very High.......... >=190 mg/dL * Source: National Cholesterol Education Program (NCEP) 7 CHEST PAIN 8 0.0 - 0.045 ng/mL: Normal 0.046 - 0.5 ng/mL: Suggestive 0.6 - 1.5 ng/mL: Consistent 9 Note: Persistent reduction for 3 months or more in an eGFR <60 mL/min/1.73 m2 defines CKD. Patients with eGFR values >/=60 mL/min/1.73 m2 may also have CKD if evidence of persistent proteinuria is present. The original MDRD equation for estimated GFR is not valid for patients less than 18 years of age. Additional information may be found at www.[email or web address]. 10 ? STROKE 11 THERAPEUTIC INR RANGE: 2.0 - 3.0 DVT, Pulmonary embolus, prophylaxis against venous thrombosis or systemic embolization in high risk patients. 2.5 - 3.5 Mechanical heart valves 12 Is patient on anticoagulants? Coumadin 13 Note: Persistent reduction for 3 months or more in an eGFR <60 mL/min/1.73 m2 defines CKD. Patients with eGFR values >/=60 mL/min/1.73 m2 may also have CKD if evidence of persistent proteinuria is present. The original MDRD equation for estimated GFR is not valid for patients less than 18 years of age. Additional information may be found at [email or web address]. 14 Specimen slightly Hemolyzed, interpret with caution 15 0.0 - 0.045 ng/mL: Normal 0.046 - 0.5 ng/mL: Suggestive 0.6 - 1.5 ng/mL: Consistent 16 CHEST PAIN 17 0.0 - 0.045 ng/mL: Normal 0.046 - 0.5 ng/mL: Suggestive 0.6 - 1.5 ng/mL: Consistent 18 0.0 - 0.045 ng/mL: Normal 0.046 - 0.5 ng/mL: Suggestive 0.6 - 1.5 ng/mL: Consistent 19 E11.42 20 Elevated levels of HbA1c suggest the need for more aggressive treatment of glycemia. The [employer] recommends that a primary goal of therapy should be a HbA1c of <7% and that physicians should re-evaluate the treatment regimen in patients with HbA1c values consistently >8%. 21 E78.5 22 Reference Guidelines*: Desirable: ........... < 200 mg/dL Borderline High: ..... 200-239 mg/dL High: ................ >= 240 mg/dL * The National Cholesterol Education Program (NCEP) 23 Reference Guidelines*: Normal: ............. < 150 mg/dL Borderline High: .... 150-199 mg/dL High: ............... 200-499 mg/dL Very High: .......... > 500 mg/dL * Source: National Cholesterol Education Program (NCEP) 24 Reference Guidelines*: Low HDL: ..... < 40 mg/dL Normal: ..... 40-60 mg/dL Desirable: ... > 60 mg/dL *The National Cholesterol Education Program(NCEP) 25 Reference Guidelines*: Optimal:........... <100 mg/dL Near Optimal....... 100-129 mg/dL Borderline High.... 130-159 mg/dL High............... 160-189 mg/dL Very High.......... >=190 mg/dL * Source: National Cholesterol Education Program (NCEP) 26 CELLULITIS LEFT FOOT, DIABETES 27 Note: Persistent reduction for 3 months or more in an eGFR <60 mL/min/1.73 m2 defines CKD. Patients with eGFR values >/=60 mL/min/1.73 m2 may also have CKD if evidence of persistent proteinuria is present. The original MDRD equation for estimated GFR is not valid for patients less than 18 years of age. Additional information may be found at www.[email or web address]. 28 Tests: crp Instructions: 29 Note: Persistent reduction for 3 months or more in an eGFR <60 mL/min/1.73 m2 defines CKD. Patients with eGFR values >/=60 mL/min/1.73 m2 may also have CKD if evidence of persistent proteinuria is present. The original MDRD equation for estimated GFR is not valid for patients less than 18 years of age. Additional information may be found at www.[email or web address]. 30 Note: Persistent reduction for 3 months or more in an eGFR <60 mL/min/1.73 m2 defines CKD. Patients with eGFR values >/=60 mL/min/1.73 m2 may also have CKD if evidence of persistent proteinuria is present. The original MDRD equation for estimated GFR is not valid for patients less than 18 years of age. Additional information may be found at [email or web address]. 31 Comments to windows technical specialist: DOSING PER PHARMACY 32 Note: Persistent reduction for 3 months or more in an eGFR <60 mL/min/1.73 m2 defines CKD. Patients with eGFR values >/=60 mL/min/1.73 m2 may also have CKD if evidence of persistent proteinuria is present. The original MDRD equation for estimated GFR is not valid for patients less than 18 years of age. Additional information may be found at www.[email or web address]. 33 Comments to windows technical specialist: DOSING PER PHARMACY 34 CELLULITIS LEFT FOOT DIABETES 35 Elevated levels of HbA1c suggest the need for more aggressive treatment of glycemia. The [employer] Diabetes [employer] recommends that a primary goal of therapy should be a HbA1c of <7% and that physicians should re-evaluate the treatment regimen in patients with HbA1c values consistently >8%. 36 Note: Persistent reduction for 3 months or more in an eGFR <60 mL/min/1.73 m2 defines CKD. Patients with eGFR values >/=60 mL/min/1.73 m2 may also have CKD if evidence of persistent proteinuria is present. The original MDRD equation for estimated GFR is not valid for patients less than 18 years of age. Additional information may be found at [email or web address]. [address] [facility], 2ND TOE ON LEFT FOOT ALL RED CELLULITIS LEFT FOOT DIABETES 38 NO GROWTH: FINAL REPORT 39 NO GROWTH: FINAL REPORT 40 Note: Persistent reduction for 3 months or more in an eGFR <60 mL/min/1.73 m2 defines CKD. Patients with eGFR values >/=60 mL/min/1.73 m2 may also have CKD if evidence of persistent proteinuria is present. The original MDRD equation for estimated GFR is not valid for patients less than 18 years of age. Additional information may be found at [email or web address]. 41 CELLULITIS LEFT FOOT, DIABETES 42 NO GROWTH: FINAL REPORT 43 NO GROWTH: FINAL REPORT Procedures Date Code Description Status 01/16/2019 65638 Debridement Nails Any Method 6 Or More Completed 01/15/2019 86090 EKG Interpretation And Report Only Completed 01/14/2019 85912 EKG-Tracing And Report Completed 09/25/2018 34468 Debridement Nails Any Method 6 Or More Completed 09/25/2018 79525 Pare Hyperkeratotic Lesion, 2-4 Completed 05/29/2018 [id number] Diabetic Foot Exam Completed 06/06/2016 [id number] Colonoscopy Completed 06/10/2003 [id number] Colonoscopy Completed Medical Devices Description No Information Available Encounters Type Date Location Provider Dx Diagnosis Office Visit 02/26/2019 Flavio Rubio MD Z23 Encounter for 8:30a Daniel SAMANIEGO immunization 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 I10 Essential (primary) hypertension E78.5 Hyperlipidemia, unspecified Office Visit 01/22/2019 10:30a Flavio Rubio, E11.42 Type 2 diabetes Daniel SAMANIEGO MD mellitus with diabetic polyneuropathy 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 [facility] heart disease of [place] coronary artery w/o ang pctrs R00.1 Bradycardia, unspecified Office Visit 01/16/2019 11:25a Podiatry Brannon, E11.42 Type 2 diabetes Office TIFF Ar[place] mellitus with diabetic polyneuropathy M76.821 Posterior tibial tendinitis, right leg M79.671 Pain in right foot Office Visit 01/14/2019 3:00p Family Medicine Flavio López, R00.1 Bradycardia, Daniel SAMANIEGO MD unspecified R51 Headache Office Visit 11/28/2018 10:15a Family Madhav, E11.42 Type 2 diabetes Medicine Daniel Meade MD mellitus with RD diabetic polyneuropathy I70.203 [facility] [place] [facility] of extremities, bilateral legs M25.551 Pain in right hip J45.20 Mild intermittent asthma, uncomplicated Office Visit 09/12/2018 8:40a Cardiology Office [facility]ivas Lamar I25.10 [facility] Jones, FACC disease of [place] coronary artery w/o ang pctrs L03.032 Cellulitis of left toe E11.9 Type 2 diabetes mellitus without complications Office Visit 09/11/2018 1:30p Family Medicine Flavio López, E78.5 Hyperlipidemia, Daniel SAMANIEGO MD unspecified E11.9 Type 2 diabetes mellitus without complications L03.032 Cellulitis of left toe I10 Essential (primary) hypertension Assessments Date Code Description Provider 02/26/2019 Z23 Encounter for immunization Flavio López MD 02/26/2019 E11.42 Type 2 diabetes mellitus with Flavio López MD diabetic polyneuropathy 02/26/2019 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 Flavio López MD 02/26/2019 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 02/26/2019 I10 Essential (primary) hypertension Flavio López MD 02/26/2019 E78.5 Hyperlipidemia, unspecified Flavio López MD 01/22/2019 E11.42 Type 2 diabetes mellitus with Flavio López MD diabetic polyneuropathy 01/22/2019 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 01/15/2019 R07.9 Chest pain, unspecified Helio Morton M.D. 01/15/2019 R94.31 Abnormal electrocardiogram [ECG] Rivas Lamar M.D. , [EKG] [facility] 01/15/2019 R94.31 Abnormal electrocardiogram [ECG] Helio Morton M.D. [EKG] 01/15/2019 I45.10 Unspecified right bundle-branch block Rivas Lamar M.D., [facility] 01/15/2019 I49.3 Ventricular premature depolarization Helio Morton M.D. 01/15/2019 I49.8 Other specified cardiac arrhythmias Helio Morton M.D. 01/14/2019 R07.9 Chest pain, unspecified Helio Morton M.D. 01/14/2019 R00.1 Bradycardia, unspecified Flavio López MD 01/14/2019 R94.31 Abnormal electrocardiogram [ECG] Helio Morton M.D. [EKG] 01/14/2019 R51 Headache Flavio López MD 01/14/2019 I25.10 Atherosclerotic heart disease of Helio Morton M.D. [place] coronary artery without angina pectoris 01/14/2019 I10 Essential (primary) hypertension Helio Morton M.D. 11/28/2018 E11.42 Type 2 diabetes mellitus with Halina Corey MD diabetic polyneuropathy 11/28/2018 I70.203 Unspecified atherosclerosis of [place] Halina Corey MD arteries of extremitie 11/28/2018 M25.551 Hip pain Halina Corey MD 11/28/2018 J45.20 Mild intermittent asthma, Halina Corey MD uncomplicated 09/25/2018 E11.42 Type 2 diabetes mellitus with Duglas South DPM diabetic polyneuropathy 09/25/2018 I70.203 Unspecified atherosclerosis of [place] Duglas South DPM arteries of extremitie 09/25/2018 L03.032 Cellulitis of left toe Duglas South, DPM 09/25/2018 S90.212A Contusion of left great toe with Duglas South DPM damage to nail, initial enc 09/25/2018 S90.222A Contusion of left lesser toe(s) with Duglas South DPM damage to nail, initial 09/25/2018 L84 Corns and callosities Duglas South DPCharly 09/12/2018 I25.10 Atherosclerotic heart disease of Rivas Lamar M.D. , [place] coronary artery with FAC 09/12/2018 L03.032 Cellulitis of left toe Rivas Lamar M.D., FACC 09/12/2018 E11.9 Type 2 diabetes mellitus without Rivas Lamar M.D., complications [facility] 09/11/2018 E78.5 Hyperlipidemia, unspecified Flavio López MD 09/11/2018 E11.9 Type 2 diabetes mellitus without Flavio López MD complications 09/11/2018 L03.032 Cellulitis of left toe Flavio López MD 09/11/2018 I10 Essential (primary) hypertension Flavio López MD 09/06/2018 L03.032 Cellulitis of left toe Malcolm Wood MD 09/06/2018 E11.9 Type 2 diabetes mellitus without Malcolm Wood MD complications 09/06/2018 Z86.79 Personal history of other diseases of Malcolm Wood MD the circulatory system 09/06/2018 I10 Essential (primary) hypertension Malcolm Wood MD 09/05/2018 M86.172 Other acute osteomyelitis, left ankle Karishma Pinzon M.D. and foot 09/05/2018 L03.032 Cellulitis of left toe Malcolm Wood MD 09/05/2018 L03.032 Cellulitis of left toe Karishma Pinzon M.D. 09/05/2018 E11.9 Type 2 diabetes mellitus without Malcolm Wood MD complications 09/05/2018 Z86.79 Personal history of other diseases of Malcolm Wood MD the circulatory system 09/04/2018 L03.032 Cellulitis of left toe Malcolm Wood MD 09/04/2018 E11.9 Type 2 diabetes mellitus without Malcolm Wood MD complications 09/04/2018 Z86.79 Personal history of other diseases of Malcolm Wood MD the circulatory system 09/04/2018 R93.7 Abnormal findings on diagnostic Malcolm Wood MD imaging of other parts of musculoskeletal system 09/03/2018 L03.032 Cellulitis of left toe Malcolm Wood MD 09/03/2018 E11.9 Type 2 diabetes mellitus without Malcolm Wood MD complications 09/03/2018 Z86.79 Personal history of other diseases of Malcolm Wood MD the circulatory system 09/02/2018 L03.032 Cellulitis of left toe Malcolm Wood MD 09/02/2018 E11.9 Type 2 diabetes mellitus without Malcolm Wood MD complications 09/02/2018 Z86.79 Personal history of other diseases of Malcolm Wood MD the circulatory system 09/01/2018 L03.032 Cellulitis of left toe Elie Ahn MD 09/01/2018 E11.9 Type 2 diabetes mellitus without Elie Ahn MD complications 09/01/2018 Z86.79 Personal history of other diseases of Elie Ahn MD the circulatory system 09/01/2018 R74.0 Nonspecific elevation of levels of Elie Ahn MD transaminase and lactic acid dehydrogenase [LDH] Plan of Treatment Future Appointment(s):03/27/2019 8:40 am - Duglas South DPM at Podiatry [id number]/12/2019 9:00 am - Halina Corey MD at [facility]2019 8:20 am - Elvi Park, AVRIL, INDEX CLERK at Cardiology [id number]/15/2017 - Niall Pruitt M.D.Q85.01 Neurofibromatosis, type 1Comments: Healed well; continue to follow up as needed. Functional Status Functional Condition Comment Date Status Independent with all ADL's Active Glasses Active Independent with all IADL's Active Complete Dentures Active Mental Status Description No Information Available Referrals Refer to Reason for Referral Status Appt Date [facility] Dept Of Neurology Sent [address] [place] [address] [phone]
--- OUTSIDE RECORDS SUMMARY | 2019-03-21 13:11 | XMS REPORT | Continuity of Care Document ---
:1965 External Reference #:[id number] Author Name Flavio López MD Address [address] [place] [id number] Care Team Providers Name Role Phone Halina Corey MD - Family Medicine Care Team Information Behavioral Intervention Specialist [phone] Problems Active Problems Provider Date Coronary arteriosclerosis Rivas Lamar M.D., Onset: 03/05/2012 [facility] Hyperlipidemia Rivas Lamar M.D., Onset: 03/05/2012 [facility] Pure hypercholesterolemia Onset: 03/28/2016 Morbid obesity Rivas Lamar M.D., Onset: 03/05/2012 [facility] Neurological disorder with type 2 Halina Corey MD Onset: 11/25/2014 diabetes mellitus [place] Elvi Ninasendy, Onset: 03/24/2015 MSN, DECAL [employer]KER Testicular hypofunction Halina Corey MD Onset: 03/31/2015 Hypertensive heart disease without heart Halina Corey MD Onset: 03/31/2015 failure Atherosclerotic heart disease of [place] Halina Corey MD Onset: 04/13/2015 coronary artery without angina pectoris Type II diabetes mellitus uncontrolled Rivas Lamar M.D., Onset: 12/2015 [facility] Type 2 diabetes mellitus Halina Corey MD Onset: 03/28/2016 Other enthesopathy of unspecified foot Halina Corey MD Onset: 03/28/2016 and ankle Duodenitis Halina Corey MD Onset: 09/27/2016 Gastro-esophageal reflux disease with Halina Corey MD Onset: 09/27/2016 esophagitis Atherosclerotic heart disease of [place] Halina Corey MD Onset: 09/27/2016 coronary artery [...] left toe Rivas Lamar M.D., Onset: 09/12/2018 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 hiazide 50-12.5mg Tablets Pantoprazole Sodium Take One Tablet By 90tabs K29.60 Halina Corey, 07/04 20mg Mouth Every Day MD Tablets DR Isosorbide Mononitrate Take 1 Tablet Daily 90tabs [...] Corey, 11/25/2014 0.4mg Tablets x3 chest pain Sub Freestyle Test Strips test glucose 2x/day 300units E11.65 Halina Corey, 11/19/2014 at alternating times MD Strips and as needed. Aspirin 81 1 po qd I25.10 [place] 11/11/2013 81mg Tablets Lana, AVRIL, DR GALVEZP Furosemide Take 1 Tablet Twice 180tabs R60.9 Halina Corey, 02/06/2011 20mg Tablets A Day (Max Daily MD Dose: 2) MDD 2 Carvedilol Take 1 Tablet Twice 180tabs I10 Halina Corey, 09/14/2010 25mg Tablets A Day (Maximum Daily MD Dose Is 2 Tablets) MDD 2 Fish Oil po bid 90caps Unknown 1000mg Capsules [place] po 3x a day Unknown 500mg Capsules Multi-Vitamin 1 po qd Unknown Tablets Vitamin C 1 by mouth every day 100tabs Unknown 1000mg Tablets [facility] D3 Once Daily Unknown 2000Unit Capsules Zaleplon take 2 capsules by 60caps G47.00 Halina Corey, 10mg Capsules mouth at bedtime as MD needed for insomnia Reference #: [id number] Fluticasone Propionate inhale one spray in 48units [...] CPT Code Status Date Vaccine Lot # [id number] Given 05/29/2018 Influenza Virus Vaccine, Quadrivalent, 36 Mos+, [id number] 93315 Given 03/28/2016 Influenza Virus Vaccine Split Virus Use For [id number] Individual 3Yr Older Q2038 Given 03/31/2015 Influenza Vaccine (Fluzone) Age 3 And Older [id number] 85948 Given 03/31/2015 Pneumococcal Conjugate Vaccine 13 Valent For [id number] Intramuscular Use Q2038 Given 05/15/2014 Influenza Vaccine (Fluzone) Age 3 And Older Q2038 Given 03/19/2013 Influenza Vaccine (Fluzone) Age 3 And Older Q2038 Given 06/16/2012 Influenza Vaccine (Fluzone) Age 3 And Older 47240 Given 05/08/2012 Pneumovax Injection Q2038 Given 03/08/2011 Influenza Vaccine (Fluzone) Age 3 And Older 89891 Given 03/08/2011 flu vaccination 27109 Given 03/31/2010 flu vaccination 63855 Given 10/07/2009 Tdap injection 95449 Given 08/08/2007 Pneumovax Injection 95481 Given 08/08/2007 Tdap injection Vital Signs Date Vital Result Comment 01/22/2019 10:22am BP Systolic 125 mmHg BP Diastolic 56 mmHg Body Temperature 97.8 F Heart Rate 48 /min Respiratory Rate 18 /min Height 72 inches Weight 338.50 lb BMI (Body Mass Index) 45.9 kg/m2 BSA (Body Surface Area) 2.66 m2 Loa body weight in kilograms 81 kg O2 % BldC Oximetry 95 % Ra 01/16/2019 11:31am BP Systolic 125 mmHg BP Diastolic 79 mmHg Body Temperature 97.8 F Heart Rate 83 /min Height 72 inches 6'0", As per patient Weight 333.00 lb BMI (Body Mass Index) 45.2 kg/m2 BSA (Body Surface Area) 2.65 m2 [place] body weight in kilograms 81 kg O2 % BldC Oximetry 95 % Results Test Date Facility Test Result H/L Range Note Laboratory test 01/15/2019 [facility] Troponin-I < 0.015 ng/mL 1, 2 finding [address] [place] [address] [phone] Basic Metabolic 01/15/2019 [facility] Glucose 158 mg/dL High 74-106 Panel [address] [place] [address] [phone] BUN 18 mg/dL Normal 7-18 Creatinine 0.9 mg/dL Normal 0.6-1.3 Glom Filtration Rate, Estimate >60 mL/min >60 If >60 mL/min >60 3 BUN/Creat 20.0 ratio Sodium 137 mmol/L Normal 136-145 Potassium 3.7 mmol/L Normal 3.5-5.1 Chloride 104 mmol/L Normal 98-107 Carbon Dioxide 23 mmol/L Normal 21-32 Anion Gap 10 mEq/L Normal 8-16 Calcium 9.2 mg/dL Normal 8.5-10.1 CBC W/Automated 01/15/2019 [facility] White Blood 8.6 K/uL Normal 3.4-10.5 [address] [place] [address] [phone] Red Blood Count 5.66 M/uL Normal 4.20-5.80 [...] 33.0-73.0 Lymph % 26.6 % Normal 20.0-42.0 Placer % 12.7 % High 0.0-10.0 Eo% 1.4 % Normal 0.0-6.6 Bas% 0.8 % Normal 0.0-1.1 Immature Grans 0.9 % Normal 0.0-5.0 NRBC % 0.0 /100WBC < 10/ 100 WBC Neut# 4.93 K/uL Normal 1.8-7.0 Lymph # 2.28 K/uL Normal 1.0-4.0 Placer # 1.09 K/uL High 0.0-0.8 Eos # 0.12 K/uL Normal 0.0-0.5 Baso # 0.07 K/uL Normal 0.0-0.1 Immature Grans Absolute 0.08 K/uL NRBC # 0.00 K/uL Protime 01/15/2019 [facility] Protime 13.2 seconds Normal 12.0-14.4 [address] [place] [id number] [phone] Inr 1.0 Normal 0.9-1.1 5 Laboratory test 01/15/2019 [facility] Act 34.1 Normal 23.4-35.0 [address] [place] [address] Thrombo [phone] Time Comprehensive 01/15/2019 [facility] Glucose 152 mg/dL High 74-106 Metabolic Panel [address] [place] [address] [phone] BUN 22 mg/dL High 7-18 Creatinine 1.2 mg/dL Normal 0.6-1.3 Glom Filtration Rate, Estimate >60 mL/min >60 If >60 mL/min >60 7 BUN/Creat 18.3 ratio Sodium 138 mmol/L Normal [...] U/L Normal 45-117 Laboratory test finding 01/15/2019 [facility] CK 96 U/L Normal 39-308 8 [address] [place] [address] [phone] Troponin-I < 0.015 ng/mL 9 Laboratory test 01/15/2019 [facility] Troponin-I < 0.015 10, [address] ng/[place] [address] [phone] CBC W/Automated 01/15/2019 [facility] White Blood 7.1 K/uL Normal 3.4- Diff [address] Count 10.5 [place] [address] [phone] Red Blood Count 5.55 M/uL Normal 4.20-5.80 [...] 33.0-73.0 Lymph % 24.8 % Normal 20.0-42.0 Placer % 13.2 % High 0.0-10.0 Eo% 2.4 % Normal 0.0-6.6 Bas% 0.7 % Normal 0.0-1.1 Immature Grans 0.7 % Normal 0.0-5.0 NRBC % 0.0 /100WBC < 10/ 100 WBC Neut# 4.12 K/uL Normal 1.8-7.0 Lymph # 1.75 K/uL Normal 1.0-4.0 Placer # 0.93 K/uL High 0.0-0.8 Eos # 0.17 K/uL Normal 0.0-0.5 Baso # 0.05 K/uL Normal 0.0-0.1 Immature Grans Absolute 0.05 K/uL NRBC # 0.00 K/uL Laboratory test 01/14/2019 [facility] Troponin-I < 0.015 [address] ng/mL [place], [place] [id number] [phone] Glycohemoglobin 11/28/2018 [facility] Glycohemoglobin 7.5 % High 4.2 13, A1c [address] (A1c) -6. 14 [place] [address] 3 [phone] eAG 169 mg/dL Urine Dipstick 11/28/2018 [facility] Ua Color yellow Yellow Ua Clarity clear Clear Ua Leuko Neg Negative Ua Nitrite Neg Negative Ua Urobilinogen Neg Low 0.2 - 1.0 E.U./dL Ua Protein Neg Negative Ua PH 6.0 Low 6.5-7.5 Ua Blood Neg Negative Ua Specific [place] 1.020 1.010-1.030 Ua Ketones Neg Negative Ua Bilirubin Neg Negative Ua Glucose 3+ High Negative LDL Cholesterol 09/12/2018 [facility] [employer] [address] Cholesterol 140 mg/dL <200 15, 16 Profile [address] [place], [place] [id number] [phone] Triglycerides 128 mg/dL <150 17 HDL Cholesterol 39 mg/dL Low >40 18 LDL-Cholesterol 75 mg/dL < 100 19 Reflex add FT3? Y Reflex add FT4? Y TSH Reflex 09/12/2018 [facility] [employer] [address] Thyroid Stim 2.46 uIU/mL Normal 0.30-4.20 FT4 And/Or [address] [facility] Hormone FT3 [place], [place] [address] [phone] Reflex add FT3? Y Reflex add FT4? Y Magnesium 09/12/2018 [facility] [employer] [address] Magnesium 2.1 mg/dL Normal 1.8-2.[address] [place] [id number] [phone] Reflex add FT3? Y Reflex add FT4? Y Basic Metabolic Panel 09/06/2018 [facility] Glucose 207 mg/dL High 74-106 20 [address] [place], [place] [id number] [phone] BUN 10 mg/dL Normal 7-18 Creatinine 0.9 mg/dL Normal 0.6-1.3 Glom Filtration Rate, Estimate >60 mL/min >60 If >60 mL/min >60 21 BUN/Creat 11.1 ratio Sodium 136 mmol/L Normal 136-145 Potassium 3.6 mmol/L Normal 3.5-5.1 Chloride 104 mmol/L Normal 98-107 Carbon Dioxide 27 mmol/L Normal 21-32 Anion Gap 5 mEq/L Low 8-16 Calcium 9.5 mg/dL Normal 8.5-10.1 Aot Request 09/05/2018 [facility] Aot Request Test(s) added 22 [address] [place] [address] [phone] Tests to be added: crp Basic Metabolic Panel 09/05/2018 [facility] Glucose 184 mg/dL High 74-106 [address] [place] [address] [phone] BUN 10 mg/dL Normal 7-18 Creatinine 0.9 mg/dL Normal 0.6-1.3 Glom Filtration Rate, Estimate >60 mL/min >60 If >60 mL/min >60 23 BUN/Creat 11.1 ratio Sodium 136 mmol/L Normal 136-145 Potassium 3.7 mmol/L Normal 3.5-5.1 Chloride 106 mmol/L Normal 98-107 Carbon Dioxide 24 mmol/L Normal 21-32 Anion Gap 6 mEq/L Low 8-16 Calcium 9.3 mg/dL Normal 8.5-10.1 CBC 09/05/2018 [facility] White Blood Count 5.2 K/uL Normal 3.4-10.5 [address] [place] [address] [phone] Red Blood Count 5.27 M/uL Normal 4.20-5.80 [...] 10/ 100 WBC CBC W/Automated Diff 09/05/2018 [facility] Neut% 49.9 % Normal 33.0-73.0 [address] [place] [address] [phone] Lymph % 29.7 % Normal 20.0-42.0 Placer % 15.5 % High 0.0-10.0 Eo% 2.7 % Normal 0.0-6.6 Bas% 1.2 % High 0.0-1.1 Immature Grans 1.0 % Normal 0.0-5.0 Neut# 2.58 K/uL Normal 1.8-7.0 Lymph # 1.53 K/uL Normal 1.0-4.0 Placer # 0.80 K/uL Normal 0.0-0.8 Eos # [...] < 10/ 100 WBC Laboratory test 09/05/2018 [facility] C-Reactive < 3.0 <3.[address] Protein,Quant mg/L [place], [place] [address] [phone] Basic Metabolic 09/04/2018 [facility] Glucose 233 High 74-[address] mg/[place] [address] [phone] BUN 11 mg/dL Normal 7-18 Creatinine 1.0 mg/dL Normal 0.6-1.3 Glom Filtration Rate, Estimate >60 mL/min >60 If >60 mL/min >60 24 BUN/Creat 11.0 ratio Sodium 137 mmol/L Normal 136-145 Potassium 3.7 mmol/L Normal 3.5-5.1 Chloride 105 mmol/L Normal 98-107 Carbon Dioxide 25 mmol/L Normal 21-32 Anion Gap 7 mEq/L Low 8-16 Calcium 9.5 mg/dL Normal 8.5-10.1 Laboratory 09/04/2018 [facility] Vancomycin,Trough 17.7 Normal 15.0-20.0 25 test finding [address] ug/[place] [address] [phone] CBC 09/04/2018 [facility] White Blood Count 5.1 Normal 3.4-10.[address] K/[place] [address] [phone] Red Blood Count 5.22 M/uL Normal 4.20-5.80 [...] NRBC % 0 Basic Metabolic Panel 09/03/2018 [facility] Glucose 157 mg/dL High 74-[address] [place] [address] [phone] BUN 11 mg/dL Normal 7-18 Creatinine 0.8 mg/dL Normal 0.6-1.3 Glom Filtration Rate, Estimate >60 mL/min >60 If >60 mL/min >60 26 BUN/Creat 13.7 ratio Sodium 138 mmol/L Normal 136-145 Potassium 3.8 mmol/L Normal 3.5-5.1 Chloride 104 mmol/L Normal 98-107 Carbon Dioxide 27 mmol/L Normal 21-32 Anion Gap 7 mEq/L Low 8-16 Calcium 9.1 mg/dL Normal 8.5-10.1 Laboratory 09/03/2018 [facility] Vancomycin,Trough 13.6 Low 15.0-20.0 27 test finding [address] ug/[place] [address] [phone] CBC 09/03/2018 [facility] White Blood Count 5.4 Normal 3.4-10.[address] K/[place] [address] [phone] Red Blood Count 5.25 M/uL Normal 4.20-5.80 [...] 10.8 fL High 6.6-10.6 CBC W/Automated 09/02/2018 [facility] White 6.7 K/uL Normal 3.4-10.5 [address] [place] [address] Count [phone] Red Blood Count 5.09 M/uL Normal 4.20-5.80 [...] 33.0-73.0 Lymph % 28.4 % Normal 20.0-42.0 Placer % 15.4 % High 0.0-10.0 Eo% 2.5 % Normal 0.0-6.6 Bas% 0.9 % Normal 0.0-1.1 Neut# 3.53 K/uL Normal 1.8-7.0 Lymph # 1.90 K/uL Normal 1.0-4.0 Placer # 1.03 K/uL High 0.0-0.8 Eos # 0.17 K/uL Normal 0.0-0.5 Baso # 0.06 K/uL Normal 0.0-0.1 Glycohemoglobin 09/02/2018 [facility] Glycohemoglobin 7.7 % High 4.2-6.[address] (A1c) [place] [address] [phone] eAG 174 mg/dL Basic Metabolic Panel 09/02/2018 [facility] Glucose 137 mg/dL High 74-[address] [place], [place] [address] [phone] BUN 21 mg/dL High 7-18 Creatinine 0.9 mg/dL Normal 0.6-1.3 Glom Filtration Rate, Estimate >60 mL/min >60 If >60 mL/min >60 30 BUN/Creat 23.3 ratio Sodium 137 mmol/L Normal 136-145 Potassium 3.7 mmol/L Normal 3.5-5.1 Chloride 104 mmol/L Normal 98-107 Carbon Dioxide 24 mmol/L Normal 21-32 Anion Gap 9 mEq/L Normal 8-16 Calcium 9.1 mg/dL Normal 8.5-10.1 Laboratory 09/02/2018 [facility] Lactic 2.1 Critical 0.4-1.9 test finding [address] Acid mmol/[place] [address] [phone] Blood Culture 09/01/2018 [facility] Blood NO 31, [address] Culture GROWTH: 32 [place] [address] Aerobic FINAL [phone] <SEE NOTE> Blood Culture Anaerobic NO GROWTH: FINAL <SEE NOTE> 33 Lactic Acid 09/01/2018 [facility] Lactic Acid 3.3 mmol/L Critical 0.4-1.[address] [place], [place] [address] [phone] Lab Reflex >2.0 for Sepsis? Y Comprehensive Metabolic 09/01/2018 [facility] Glucose 197 mg/dL High 74-106 Panel [address] [place] [address] [phone] BUN 20 mg/dL High 7-18 Creatinine 1.2 mg/dL Normal 0.6-1.3 Glom Filtration Rate, Estimate >60 mL/min >60 If >60 mL/min >60 34 BUN/Creat 16.6 ratio Sodium 136 mmol/L Normal [...] 102 U/L Normal 45-117 Differential-WBC Confirm 09/01/2018 [facility] Total Cells 100 #CELLS [address] [place] [address] [phone] Band% 1 % Normal 0-8 Neutrophils% 66 % Normal 33-73 Lymph% 14 % Low 20-42 Atypical Lymph% 2 % Normal 0-7 Monocyte% 13 % High 0-10 Eosinophil% 2 % Normal 0-5 Basophil% 2 % Normal 0-2 Platelet Estimate NORMAL Anisocytosis 1+ Differential Comment FEW LRG PLTS Laboratory test 09/01/2018 [facility] Slide Review DIFF ORDERED finding [address] [place] [address] [phone] CBC W/Automated 09/01/2018 [facility] White Blood 9.8 K/uL Normal 3.4-[address] Count 0.5 [place] [address] [phone] Red Blood Count 5.29 M/uL Normal 4.20-5.80 [...] 33.0-73.0 Lymph % 21.5 % Normal 20.0-42.0 Placer % 13.6 % High 0.0-10.0 Eo% 1.7 % Normal 0.0-6.6 Bas% 0.8 % Normal 0.0-1.1 Neut# 6.13 K/uL Normal 1.8-7.0 Lymph # 2.12 K/uL Normal 1.0-4.0 Placer # 1.34 K/uL High 0.0-0.8 Eos # 0.17 K/uL Normal 0.0-0.5 Baso # 0.08 K/uL Normal 0.0-0.1 Blood Culture 09/01/2018 [facility] Blood Culture NO GROWTH: 35, [address] Aerobic FINAL <[place] [address] NOTE> [phone] Blood Culture Anaerobic NO GROWTH: FINAL <SEE NOTE> 37 1 CHEST PAIN 2 0.0 - 0.045 ng/mL: Normal 0.046 - 0.5 ng/mL: Suggestive 0.6 - 1.5 ng/mL: Consistent 3 Note: Persistent reduction for 3 months or more in an eGFR <60 mL/min/1.73 m2 defines CKD. Patients with eGFR values >/=60 mL/min/1.73 m2 may also have CKD if evidence of persistent proteinuria is present. The original MDRD equation for estimated GFR is not valid for patients less than 18 years of age. Additional information may be found at www.kdoqi.org. 4 ? STROKE 5 THERAPEUTIC INR RANGE: 2.0 - 3.0 DVT, Pulmonary embolus, prophylaxis against venous thrombosis or systemic embolization in high risk patients. 2.5 - 3.5 Mechanical heart valves 6 Is patient on anticoagulants? Coumadin 7 Note: Persistent reduction for 3 months or more in an eGFR <60 mL/min/1.73 m2 defines CKD. Patients with eGFR values >/=60 mL/min/1.73 m2 may also have CKD if evidence of persistent proteinuria is present. The original MDRD equation for estimated GFR is not valid for patients less than 18 years of age. Additional information may be found at www.kdoqi.org. 8 Specimen slightly Hemolyzed, interpret with caution 9 0.0 - 0.045 ng/mL: Normal 0.046 - 0.5 ng/mL: Suggestive 0.6 - 1.5 ng/mL: Consistent 10 CHEST PAIN 11 0.0 - 0.045 ng/mL: Normal 0.046 - 0.5 ng/mL: Suggestive 0.6 - 1.5 ng/mL: Consistent 12 0.0 - 0.045 ng/mL: Normal 0.046 - 0.5 ng/mL: Suggestive 0.6 - 1.5 ng/mL: Consistent 13 E11.42 14 Elevated levels of HbA1c suggest the need for more aggressive treatment of glycemia. The [place] [employer] recommends that a primary goal of therapy should be a HbA1c of <7% and that physicians should re-evaluate the treatment regimen in patients with HbA1c values consistently >8%. 15 E78.5 16 Reference Guidelines*: Desirable: ........... < 200 mg/dL Borderline High: ..... 200-239 mg/dL High: ................ >= 240 mg/dL * The National Cholesterol Education Program (NCEP) 17 Reference Guidelines*: Normal: ............. < 150 mg/dL Borderline High: .... 150-199 mg/dL High: ............... 200-499 mg/dL Very High: .......... > 500 mg/dL * Source: National Cholesterol Education Program (NCEP) 18 Reference Guidelines*: Low HDL: ..... < 40 mg/dL Normal: ..... 40-60 mg/dL Desirable: ... > 60 mg/dL *The National Cholesterol Education Program(NCEP) 19 Reference Guidelines*: Optimal:........... <100 mg/dL Near Optimal....... 100-129 mg/dL Borderline High.... 130-159 mg/dL High............... 160-189 mg/dL Very High.......... >=190 mg/dL * Source: National Cholesterol Education Program (NCEP) 20 CELLULITIS LEFT FOOT, DIABETES 21 Note: Persistent reduction for 3 months or more in an eGFR <60 mL/min/1.73 m2 defines CKD. Patients with eGFR values >/=60 mL/min/1.73 m2 may also have CKD if evidence of persistent proteinuria is present. The original MDRD equation for estimated GFR is not valid for patients less than 18 years of age. Additional information may be found at www.kdoqi.org. 22 Tests: crp Instructions: 23 Note: Persistent reduction for 3 months or more in an eGFR <60 mL/min/1.73 m2 defines CKD. Patients with eGFR values >/=60 mL/min/1.73 m2 may also have CKD if evidence of persistent proteinuria is present. The original MDRD equation for estimated GFR is not valid for patients less than 18 years of age. Additional information may be found at www.kdoqi.org. 24 Note: Persistent reduction for 3 months or more in an eGFR <60 mL/min/1.73 m2 defines CKD. Patients with eGFR values >/=60 mL/min/1.73 m2 may also have CKD if evidence of persistent proteinuria is present. The original MDRD equation for estimated GFR is not valid for patients less than 18 years of age. Additional information may be found at www.kdoqi.org. 25 Comments to sr. vendor management associate: DOSING PER PHARMACY 26 Note: Persistent reduction for 3 months or more in an eGFR <60 mL/min/1.73 m2 defines CKD. Patients with eGFR values >/=60 mL/min/1.73 m2 may also have CKD if evidence of persistent proteinuria is present. The original MDRD equation for estimated GFR is not valid for patients less than 18 years of age. Additional information may be found at www.[email or web address]. 27 Comments to sr. vendor management associate: DOSING PER PHARMACY 28 CELLULITIS LEFT FOOT DIABETES 29 Elevated levels of HbA1c suggest the need for more aggressive treatment of glycemia. The [place] [employer] recommends that a primary goal of therapy should be a HbA1c of <7% and that physicians should re-evaluate the treatment regimen in patients with HbA1c values consistently >8%. 30 Note: Persistent reduction for 3 months or more in an eGFR <60 mL/min/1.73 m2 defines CKD. Patients with eGFR values >/=60 mL/min/1.73 m2 may also have CKD if evidence of persistent proteinuria is present. The original MDRD equation for estimated GFR is not valid for patients less than 18 years of age. Additional information may be found at www.kdoqi.org. 31 SENT OVER FROM [facility], 2ND TOE ON LEFT FOOT ALL RED CELLULITIS LEFT FOOT DIABETES 32 NO GROWTH: FINAL REPORT 33 NO GROWTH: FINAL REPORT 34 Note: Persistent reduction for 3 months or more in an eGFR <60 mL/min/1.73 m2 defines CKD. Patients with eGFR values >/=60 mL/min/1.73 m2 may also have CKD if evidence of persistent proteinuria is present. The original MDRD equation for estimated GFR is not valid for patients less than 18 years of age. Additional information may be found at www.kdoqi.org. 35 CELLULITIS LEFT FOOT, DIABETES 36 NO GROWTH: FINAL REPORT 37 NO GROWTH: FINAL REPORT Procedures Date Code Description Status 01/16/2019 07485 Debridement Nails Any Method 6 Or More Completed 01/15/2019 66927 EKG Interpretation And Report Only Completed 01/14/2019 46447 EKG-Tracing And Report Completed 09/25/2018 98246 Debridement Nails Any Method 6 Or More Completed 09/25/2018 52067 Pare Hyperkeratotic Lesion, 2-4 Completed 05/29/2018 [id number] Diabetic Foot Exam Completed 06/06/2016 [id number] Colonoscopy Completed 06/10/2003 [id number] Colonoscopy Completed Medical Devices Description No Information Available Encounters Type Date Location Provider Dx Diagnosis Office Visit 01/22/2019 Flavio Rubio MD E11.42 Type 2 diabetes 10:30a Daniel SAMANIEGO mellitus with diabetic 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551 Pain in right hip J45.20 Mild intermittent asthma, uncomplicated Office Visit 09/12/2018 8:40a Cardiology Office Rivas Lamar I25.10 [facility] heart Pako Jones, 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 01/15/2019 R07.9 Chest pain, unspecified Helio Morton M.D. 01/15/2019 R94.31 Abnormal electrocardiogram [ECG] Rivas Lamar M.D. , [EKG] [facility] 01/15/2019 R94.31 Abnormal electrocardiogram [ECG] Helio Morton M.D. [EKG] 01/15/2019 I45.10 Unspecified right bundle-branch block Rivas Lamar M.D., [facility] 01/15/2019 I49.3 Ventricular premature depolarization Helio Morton M.D. 01/15/2019 I49.8 Other specified cardiac arrhythmias Helio Morton M.D. 01/14/2019 R00.1 Bradycardia, unspecified Flavio López MD 01/14/2019 R07.9 Chest pain, unspecified Helio Morton M.D. 01/14/2019 R94.31 Abnormal electrocardiogram [ECG] Helio Morton M.D. [EKG] 01/14/2019 R51 Headache Flavio López MD 01/14/2019 I25.10 Atherosclerotic heart disease of Helio Morton M.D. [place] coronary artery without angina pectoris 01/14/2019 I10 Essential (primary) hypertension Helio Morton M.D. 11/28/2018 E11.42 Type 2 diabetes mellitus with Halina Corey MD diabetic polyneuropathy 11/28/2018 I70.203 Unspecified atherosclerosis of [place] Halina Corey MD 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 09/12/2018 L03.032 Cellulitis of left toe Rivas Lamar M.D., [facility] 09/12/2018 E11.9 Type 2 diabetes mellitus without Rivas Lamar M.D., complications FAC 09/11/2018 E78.5 Hyperlipidemia, unspecified Flavio López MD [...] acid dehydrogenase [LDH] Plan of Treatment Future Appointment(s):02/26/2019 8:30 am - Flavio López MD at [facility] RD03/27/2019 8:40 am - Duglas South DPM at Podiatry [facility]0206/12/2019 9 :00 am - Halina Corey MD at [facility]09/14/2019 8:20 am - [place]vi [place], MSN, DECAL [employer]ER at Cardiology [facility]2311/15/2017 - Niall Pruitt M.D.Q85.01 Neurofibromatosis, type 1Comments:Healed well; continue to follow up as needed. Functional Status Functional Condition Comment Date Status Independent with all ADL's Active Glasses Active Independent with all IADL's Active Complete Dentures Active Mental Status Description No Information Available Referrals Refer to Reason for Referral Status Appt Date [facility] Dept Of Neurology Created [address] [place] [address] [phone]
[2019-03-21 13:32] VITALS: BP 105/88
--- NOTE | 2019-03-21 13:47 | UC ---
Throat Pain/Nasal Roberto HPI - HPI Summary HPI Summary: 54-year-old male who has had head congestion over the past 3 days. - History of Current Complaint Chief Complaint: UCRespiratory Stated Complaint: SINUS PRESSURE Time Seen by Provider: 03/21/19 13:41 Hx Obtained From: Patient Onset/Duration: Gradual Onset Severity: Mild Pain Intensity: 4 Cough: Nonproductive Associated Signs & Symptoms: Positive: Wheezing - Patient has been using his albuterol inhaler just 3 times daily., Sinus Discomfort, Nasal Discharge - Allergies/Home Medications Allergies/Adverse Reactions: Allergies Allergy/AdvReac Type Severity Reaction Status Date / Time No Known Allergies Allergy Verified 03/21/19 13:29 Home Medications: Home Medications Gabapentin CAP(*) [Neurontin 100 mg CAP(*)] 1 cap BID 03/21/19 [History Confirmed 03/21/19] PMH/Surg Hx/FS Hx/Imm Hx Previously Healthy: Yes Endocrine History: Diabetes Cardiovascular History: Cardiac Disease, Hypertension Respiratory History: Asthma - Surgical History Surgical History: Yes Surgery Procedure, Year, and Place: appy 1978, right humerus bone cyst 1971-, fibromas on arms, legs, cardiac stents 2009 - Family History Known Family History: Positive: Cardiac Disease, Hypertension - Social History Alcohol Use: Occasionally Substance Use Type: None Smoking Status (MU): Former Smoker Type: Cigarettes Amount Used/How Often: 1 PPD Length of Time of Smoking/Using Tobacco: On and Offfor 38 Years When Did the Patient Quit Smoking/Using Tobacco: ~2013 - Immunization History Most Recent Influenza Vaccination: no Review of Systems All Other Systems Reviewed And Are Negative: Yes ENT: Positive: Nasal Discharge, Sinus Congestion, Sinus Pain/Tenderness Respiratory: Positive: Cough - Nonproductive cough. Is Patient Immunocompromised?: No Physical Exam Triage Information Reviewed: Yes Appearance: Well-Appearing, No Pain Distress, Well-Nourished Vital Signs: Initial Vital Signs Temp 98.3 F 03/21/19 13:30 Pulse 80 03/21/19 13:30 Resp 16 03/21/19 13:30 BP 105/88 03/21/19 13:30 Pulse Ox 98 03/21/19 13:30 Vital Signs Reviewed: Yes Eyes: Positive: Conjunctiva Clear ENT: Positive: Hearing grossly normal, Pharynx normal, Nasal drainage - Clear nasal coryza, TMs normal, Uvula midline Neck: Positive: Supple, Nontender, No Lymphadenopathy Respiratory: Positive: Lungs clear, Normal breath sounds, No respiratory distress, No accessory muscle use Cardiovascular: Positive: RRR, No Murmur, Pulses Normal, Brisk Capillary Refill Musculoskeletal Exam: Normal Neurological Exam: Normal Psychological Exam: Normal Throat Pain/Nasal Course/Dx - Course Course Of Treatment: Patient is comfortable here. Although he sounds like he has mild wheeze when he speaks his lungs are completely clear. He does not have a bacterial sinus infection at this point time. I believe this is a viral upper respiratory illness he may use his albuterol inhaler 2 puffs every 4 hours as needed for wheezing or tight cough. - Differential Dx/Diagnosis Provider Diagnosis: URI (upper respiratory infection) Discharge ED - Sign-Out/Discharge Documenting (check all that apply): Patient Departure All imaging exams completed and their final reports reviewed: No Studies - Discharge Plan Condition: Good Disposition: HOME Patient Education Materials: Upper Respiratory Infection (DC) Referrals: Halina Corey MD [Primary Care Provider] - Additional Instructions: Increase fluids, use her albuterol inhaler 2 puffs every 4 hours as needed for wheezing or shortness of breath. Definite follow-up with your primary care provider in 4 or 5 days if no improvement. - Billing Disposition and Condition Condition: GOOD Disposition: Home - Attestation Statements Provider Attestation: I was available for consult. This patient was seen by the JORDYN. The patient was not presented to, seen by, or examined by me. -Sasha
== END 2019-03-21 13:57 | disposition home or self-care (01) ==
LOC: UCCORT 13:03
DX: J06.9 Acute upper respiratory infection, unspecified (principal); E11.9 Type 2 diabetes mellitus without complications; I10 Essential (primary) hypertension; J45.909 Unspecified asthma, uncomplicated; Z87.891 Personal history of nicotine dependence
CPT/HCPCS: 99212; G0463